=== PATIENT | female | born 1980 | race Caucasian/White ===

== ENCOUNTER 2024-04-28 12:07 | Outpatient (REF) | payer SELFPAY ==
[2024-04-28 13:10] LABS: MANUAL DIFF FLAG NO
[2024-04-28 13:34] LABS: Basophils Absolute Auto 0.1 X10*3/uL (0.0-0.2); Basophils Percent Auto 0.9 % (0-2); Eosinophils Absolute Auto 0.2 X10*3/uL (0.0-0.4); Eosinophils Percent Auto 3.2 % (0-4); Hematocrit 36.9 % (37.0-47.0); Hemoglobin 12.2 g/dl (12.0-16.0); Imm Gran Abs Auto 0.03 X10*3/uL (0.00-0.03); Imm Gran Pct Auto 0.4 % (0.0-0.4); Lymphocytes Absolute Auto 2.1 X10*3/uL (1.2-4.9); Lymphocytes Percent Auto 31.4 % (20-40); Mean Corpuscular HGB Conc 33.1 g/dl (31.0-35.0); Mean Corpuscular Hemoglobin 29.9 pg (27.0-33.0); Mean Corpuscular Volume 90.4 fL (80.0-98.0); Mean Platelet Volume 10.7 fL (9.4-12.3); Monocytes Absolute Auto 0.6 X10*3/uL (0.1-1.2); Monocytes Percent Auto 8.7 % (2-11); Neutrophils Absolute Auto 3.8 x10*3/uL (2.0-8.3); Neutrophils Percent Auto 55.4 % (45-73); Platelet Count 239 X10*3/uL (160-400); Red Blood Count 4.08 X10*6/uL (4.20-5.50); Red Cell Distribution Width 13.2 % (11.0-16.0); White Blood Count 6.8 X10*3/uL (4.8-10.8)
--- OUTSIDE RECORDS SUMMARY | 2024-04-28 13:48 | XMS_ITS | Encounter Summary ---
Author Organization [employer] Address [address] [place] [address] 7 [place] [address] Care Team Providers Care Apron Operator Name Role Phone Patience Wolf MD Primary Care Provider +1- [phone] Reason for Visit * Reason Onset Date Comments Appointment Request 02/19/2024 Encounter Details Date Type Department Care Team ([facility] st Contact Info) Description 02/19/2024 Telephone [facility] [address] [place] [address] Patience Wolf MD [address] [place], [place] [phone] Appointment Request Social History Tobacco Use Types Packs/Day Years Used Date Smoking Tobacco: Former Cigarettes Housing Stability Answer Date Recorded What is your housing situation today? I have housing today, but I am worried about losing housing in the future 12/11/[address] you li ve. Do you have problems with any of the following? None of the above 12/11/2022 Food Insecurity Answer Date Recorded Within the past 12 months, y ou worried that your food would run out before you got money to buy more: Never True 12/11/2022 Within the past 12 months,th e food you bought just didn't last and you didn't have enough money to get more: Never True Transportation Answer Date Recorded In the past 12 months, has l ack of transportation kept you from medical appts, meetings, work or from getting things needed for daily living? No 12/11/2022 Utilities Answer Date Recorded In the past 12 months, has t he electric, gas, oil or water company threatened to shut off services in your home? No 12/11/2022 Depression Answer Date Recorded Patient Health Questionnaire-2 Score 0 02/24/2022 Comments Unknown Sex and Gender Information Value Date Recorded Sex Assigned at Female 12/19/2021 10:19 AM EDT Legal Sex Female 10:19 AM EDT Gender Identity Female 12/19/2021 10:19 AM EDT Sexual Orientation Straight 12/19/2021 10 :19 AM EDT documented as of this encounter Miscellaneous Notes * Telephone Encounter - Nathan Abreu - 02/19/2024 11:35 AM EST Tc from pt calling stating she has an appt scheduled for 2 but it was cancelled and she was advised to call back in Feb when to see if the mar schedule has opened. Pt calls back slightly frustratedand feels it is unfair especially since the 3rd has been taken. Pt would like a call back to possibly reschedule PE. Please contact pt at [phone]. documented in this encounter Plan of Treatment Upcoming Encounters Date Type Department Care Team (Late st Contact Info) Description 06/12/2024 3:45 PM EDT Office Visit [facility] [address] [place] [phone] Lauren Jason MD [address] [place] [address] documented as of this encounter Visit Diagnoses Not on filedocumented in this encounter Care Teams Apron Operator Relationship Specialty Start Date End Date Patience Wolf MD [address] [place] [address] PCP - General Family Medicine 02/19/18 Dr. Santiago Psychiatry 03/05/24 documented as of this encounter
--- OUTSIDE RECORDS SUMMARY | 2024-04-28 13:49 | XMS_ITS | Encounter Summary ---
Author Organization [employer] Address [address] [place] [address] 7 [place] [address] Care Team Providers Care Bankruptcy Paralegal Name Role Phone Patience Wolf MD Primary Care Provider +1- [phone] Encounter Details Date Type Department Care Team (Latest Contact Info) Description 04/24/2024 Travel Social History Tobacco Use Types Packs/Day Years Used Date Smoking Tobacco: Former Cigarettes Housing Stability Answer Date Recorded What is your housing situation today? I have ja adams 04/16/[address] you li ve. Do you have problems with any of the following? None of the above 04/16/2024 Food Insecurity Answer Date Recorded Within the past 12 months, y ou worried that your food would run out before you got money to buy more: Never True 04/16/2024 Within the past 12 months,th e food you bought just didn't last and you didn't have enough money to get more: Never True Transportation Answer Date Recorded In the past 12 months, has l ack of transportation kept you from medical appts, meetings, work or from getting things needed for daily living? No 04/16/2024 Utilities Answer Date Recorded In the past 12 months, has t he electric, gas, oil or water company threatened to shut off services in your home? No 04/16/2024 Depression Answer Date Recorded Patient Health Questionnaire-2 Score 0 02/24/2022 Internet Access Answer Date Recorded Internet Access Q1 Yes 04/16/2024 Internet Access Q2 Not on file 04/16/2024 Comments Unknown Sex and Gender Information Value Date Recorded Sex Assigned at Female 12/19/2021 10:19 AM EDT Legal Sex Female 10:19 AM EDT Gender Identity Female 12/19/2021 10:19 AM EDT Sexual Orientation Straight 12/19/2021 10 :19 AM EDT documented as of this encounter Plan of Treatment Upcoming Encounters Date Type Department Care Team (Late st Contact Info) Description 06/12/2024 3:45 PM EDT Office Visit [facility] [address] [place] [address] Lauren Jason MD [address] [place] [address] documented as of this encounter Visit Diagnoses Not on filedocumented in this encounter Care Teams Bankruptcy Paralegal Relationship Specialty Start Date End Date Patience Wolf MD [address] [place] [id number] PCP - General Family Medicine 02/19/18 Dr. Santiago Psychiatry 03/05/24 documented as of this encounter
--- OUTSIDE RECORDS SUMMARY | 2024-04-28 13:49 | XMS_ITS | Encounter Summary ---
Author Organization [employer] Address [address] [facility] 7 [place] [address] Care Team Providers Care Heavy Equipment Operator Name Role Phone Patience Wolf MD Primary Care Provider +1- [phone] Encounter Details Date Type Department Care Team ([facility] st Contact Info) Description 02/09/2023 Telephone [facility] [address] [place], [place] [phone] Patience Wolf MD [address] [place], [place] [phone] Social History Tobacco Use Types Packs/Day Years Used Date Smoking Tobacco: Former Cigarettes Smokeless Tobacco: Never Housing Stability Answer Date Recorded What is [...] t he electric, gas, oil or water [employer] threatened to shut off services in your [...] Description 06/12/2024 3:45 PM EDT Office Visit [facility] [address] [place] [phone] Lauren Jason MD [address] [place] [address] documented as of this encounter Visit Diagnoses Not on filedocumented in this encounter Care Teams Heavy Equipment Operator Relationship Specialty Start Date End Date Patience Wolf MD [address] [place] [phone] PCP - General Family Medicine 02/19/18 Dr. Santiago Psychiatry 03/05/24 documented as of this encounter
--- OUTSIDE RECORDS SUMMARY | 2024-04-28 13:49 | XMS_ITS | Clinical Summary ---
Author Organization [employer] Address [address] [place] [address] 7 [place] [address] Care Team Providers Care Clinical Office Technician Name Role Phone Patience Wolf MD Primary Care Provider +1- [phone] Allergies Active Allergy Reactions Criticality Noted Date Comments Sulfa Antibiotics Unknown 04/13/2010 Medications albuterol (Ventolin HFA) 108 (90 Base) MCG/ACT inhaler Inhale 2 puffs every 4 (four) hours. 10/08/19 22 Active methylphenidate CD (Metadate CD) 20 MG daily capsuleIndication s:Attention deficit hyperactivity disorder (ADHD), unspecified ADHD type Take 20 mg by mouth in the morning. Do not crush or chew. Active Buprenorphine HCl-Naloxone HCl (Suboxone) 8-2 MG SL filmIndications:U ncomplicated opioid dependence (CMS/HCC) Place 2 Film under the tongue Once per day for 21 days. 42 Film 04/25/19 25 025 Active Buprenorphine HCl-Naloxone HCl (Suboxone) 8-2 MG SL filmIndications:U ncomplicated opioid dependence (CMS/HCC) Place 2 Film under the tongue Once per day. 56 Film 1 02/20/19 25 025 Discontinued(Re order (will not trigger notification to Pharmacy)) Buprenorphine HCl-Naloxone HCl (Suboxone) 8-2 MG SL filmIndications:U ncomplicated opioid dependence (CMS/HCC) Place 2 Film under the tongue Once per day. 56 Film 1 04/22/19 25 03/06/2 025 Discontinued(Re order (will not trigger notification to Pharmacy)) Active Problems Problem Noted Date Diagnosed Date Dietary counseling 04/28/2024 Exercise counseling 04/28/2024 Dyslipidemia 04/28/2024 Overview (04/28/2024): Lab Results Component Value Date TRIG 230 (H) 04/24/2022 -continue lifestyle modification Plantar fasciitis, bilateral 04/28/2024 Overview (04/28/2024): Diagnosed 04/2024 by history and exam -exercises reviewed -kinesotaping done with instructions how to do at home -seek medical attention if symptoms do not resolve Assessment & Plan (04/28/2024 12:21 PM EDT): Diagnosed 04/2024 by history and exam -exercises reviewed -kinesotaping done with instructions how to do at home -seek medical attention if symptoms do not resolve Abnormal mammogram 11/16/2023 Overview (11/16/2023): -mammogram at [facility] 01/05/2023 BIRADS 0 -right diagnostic Mammo 02/07/23 BIRADS 0 recommend US -right US FINDINGS: In the right breast at 10:00 7 cm from the nipple there is a 30.7 x 2.3 x 3.2 mm lymph node. Also, in the right breast at 10:00 11 cm from the nipple there is an 11 x 4 x 6 mm lymph node. These correlate with the previously demonstrated mammographic abnormalities. IMPRESSION: The mammographic abnormalities correspond with benign appearing lymph nodes. Recommendation: Annual screening. -next screening due 01/06/24 Cardiac risk counseling 06/13/2023 Overview (06/18/2023): Calculated 06/13/23: Low Risk The 10-year ASCVD risk score (Celeste LOU, et al., 2019) is: 1.9% Values used to calculate the score: Age: 43 years Sex: Female Is Non- : No Diabetic: No Tobacco smoker: No Systolic Blood Pressure: 163 mmHg Is BP treated: No HDL Cholesterol: 41 mg/dL Total Cholesterol: 201 mg/dL Lab Results Component Value Date LDLCHOL 123 (H) 04/24/2022 -Tobacco cessation: not applicable -Statin therapy:N/A -Importance of moderate physical activity and nutrition interventions discussed. Marijuana user 03/14/2023 Vapes nicotine containing substance 03/14/2023 Other specified health status 09/18/2022 Overview (04/28/2024): -next comprehensive annual evaluation due after 04/28/2025 -eye care facilitated by [facility] referral placed 03/14/23 -dental home [facility] care proxy filed 04/28/24 Assessment & Plan (04/28/2024 12:20 PM EDT): -next comprehensive annual evaluation due after 04/28/2025 -eye care facilitated by [facility] referral placed 03/14/23 -dental home is [facility] care proxy filed 04/28/24 Assessment & Plan (03/14/2023 3:47 PM EST): -next physical exam due after 03/14/24 -eye care facilitated by [facility] referral placed 03/14/23 -dental home is [facility] proxy paperwork given 03/14/23 Mild intermittent asthma 11/20/2016 Attention deficit hyperactivity disorder 012 Overview (02/24/2022): -Stable on Concerta prescribed by Dr. Santiago. Assessment & Plan (02/24/2022 10:33 AM EST): -Stable on Concerta prescribed by Dr. Santiago. Opioid dependence 02/02/2012 Overview (02/24/2022): -continue medication assisted therapy Assessment & Plan (02/24/2022 10:33 AM EST): -continue medication assisted therapy Resolved Problems Problem Noted Date Diagnosed Date Resolved Date Asthma 02/02/2012 02/24/2022 Tobacco dependence syndrome 02/02/2012 02/24/2022 Encounters Date Type Department Care Team Description 04/28/2024 10:45 AM EDT Office Visit [facility] [address] [place] [address] Patience Wolf MD Plantar fasciitis, bilateral (Primary Dx); Mild intermittent asthma without complication; Attention deficit hyperactivity disorder (ADHD), unspecified ADHD type; Abnormal mammogram; Dietary counseling; Exercise counseling; Encounter for immunization; Routine screening for STI (sexually transmitted infection); Screening mammogram for breast cancer; Screening examination for STI; Dyslipidemia; Menorrhagia with regular cycle; Vitamin D deficiency; Other specified health status 04/28/2024 Travel 04/24/2024 2:45 PM EST Office Visit [facility] [address] [place] [address] Lauren Jason MD Uncomplicated opioid dependence (CMS/HCC) (Primary Dx) 04/24/2024 Refill [facility] [address] [place] [address] Dashawn Sandoval RN Uncomplicated opioid dependence (CMS/HCC) 04/24/2024 Travel 04/17/2024 Refill [facility] [address] [place] [phone] Lauren Jason MD Uncomplicated opioid dependence (CMS/HCC) 04/16/2024 Patient Outreach [address] [address] Patience Wolf MD Pre-visit Planning (SDOH Screening negative and Tobacco screening negative) 02/28/2024 3:30 PM EST Telemedicine [facility] [address] [place] [address] Lauren Jason MD Uncomplicated opioid dependence (CMS/HCC) (Primary Dx) 02/28/2024 Travel 02/21/2024 Refill [facility] [address] [place] [address] Dashawn Sandoval RN Uncomplicated opioid dependence (CMS/HCC) 02/21/2024 Telephone [facility] [address] [place] [address] Dariela LeRICHEY, [place] March02/21/2024 Telephone [facility] [address] [place] [address] Dariela Le [place] March Recall 02/19/2024 Telephone [facility] [address] [place] [address] Patience Wolf MD Appointment Request from Last 3 Months Immunizations Name Administration Dates Next Due Hep A, Adult 02/15/2011,06/08/2010 Hep B, adult 04/28/2024,03/14/2023 Influenza injectable quadriv alent IIV4 with preservative 12/05/2017 Influenza, IIV3, injectable 12/09/2013,1 02/20/2010,03/19/2008,2006 Influenza, Split (incl. thang fied surface antigen) 01/08/2013,11/29/2011 Moderna Covid-19 Vaccine 12+ 01/20/2021,03/30/19,03/04/2020 Pneumococcal Conjugate PCV 20 04/28/2024 TD (adult), 2 Lf tetanus tox oid, preservative free, adsorbed 11/20/2003 Tdap 04/28/2024,05/13/2014 Family History Medical History Relation Name Comments Hodgkin's lymphoma Maternal Grandmother passed from covid Mother Patient wi tnessed passing via FaceTime. Diabetes Paternal Grandmother Relation Name Status Comments Daughter Alive Maternal Grandmother Mother Paternal Grandmother Social History Tobacco Use Types Packs/Day Years Used Date Smoking Tobacco: Former Cigarettes Tobacco Cessation:Counseling Given: No Depression Answer Date Recorded Patient Health Questionnaire-9 Score 5 04/28/2024 Patient Health Questionnaire-9 Score 5 04/28/2024 Last PHQ-9: Questionnaire Data Not on file 0 04/28/2024 Housing Stability Answer Date Recorded What is [...] Date Recorded Patient Health Questionnaire-2 Score 0 04/28/2024 Internet Access Answer Date Recorded Internet Access Q1 Yes 04/16/2024 Internet Access Q2 Not on file 04/16/2024 Comments Unknown Sex and Gender Information Value Date Recorded Sex Assigned at Female 12/19/2021 10:19 AM EDT Legal Sex Female 10:19 AM EDT Gender Identity Female 12/19/2021 10:19 AM EDT Sexual Orientation Straight 12/19/2021 10 :19 AM EDT Last Filed Vital Signs Vital Sign Reading Time Taken Comments Blood Pressure 115/75 04/28/2024 11:10 AM EDT Pulse 85 04/28/2024 11:10 AM EDT Temperature 35.6 ??C (96 ??F) 04/28/2024 11:10 AM EDT Respiratory Rate 20 04/28/2024 11:10 AM EDT Oxygen Saturation 95% 04/28/2024 11:10 AM EDT Inhaled Oxygen Concentration - - Weight 83.9 kg (185 lb) 04/28/2024 11:10 AM EDT Height 172.1 cm (5' 7.75 ) 04/28/2024 11:10 AM E DT Body Mass Index 28.34 04/28/2024 11:10 AM EDT Plan of Treatment Upcoming Encounters Date Type Department Care Team (Late st Contact Info) Description 06/12/2024 3:45 PM EDT Office Visit [facility] [address] [place] [address] Lauren Jason MD [address] [place] [address] Health Maintenance Due Date Last Done Comments Mammogram 01/06/2024 01/05/2023 Hepatitis B Vaccines (3 of 3 - 19+ 3-dose series) 06/23/2024 04/28/2024, 03/14/2023 SDOH Screening 04/16/2025 04/16/2024 Alcohol/Substance Use Screening 04/28/2025 04/28/2024 Depression Screening 04/28/2025 04/28/2024, 04/29/19 Family Planning (PISQ) 04/28/2025 04/28/2024 Tobacco Screening 04/28/2025 04/28/2024 Cervical Cancer Screening 11/15/2027 HPV/Cotest 11/15/2027 11/14/2022, 06/19, 07/05/2016 Pap Smear 11/15/2027 11/14/2022, 07/05/2016 Zoster Vaccines (1 of 2) 2030 DTaP/Tdap/Td Vaccines (3 - Td or Tdap) 04/28/2034 04/28/2024, 05/13/2014, 11/20/2003 RSV Patients and Patients Aged 60 years or older (1 - 1-dose 75+ series) 05/24/2055 Hepatitis A Vaccines Aged Out 02/15/2011, 06/09/19 11 No longer eligible based on patient's age to complete this topic HIV Screening Completed 04/24/2022 Hepatitis C Screening Completed 04/24/2022 COVID-19 Vaccine Completed 10/23/2023, 03/2020, 03/30/2020, Additional history exists Influenza Vaccine Completed 11/15/2023, , 12/09/2013, Additional history exists Pneumococcal Vaccine: Pediatrics (0 to 5 Years) and At-Risk Patients (6 to 49) Years) Completed 04/28/2024 HIB Vaccines Aged Out No longer eligi ble based on patient's age to complete this topic HPV Vaccines Aged Out No longer eligi ble based on patient's age to complete this topic IPV Vaccines Aged Out No longer eligi ble based on patient's age to complete this topic Meningococcal Vaccine Aged Out No min krysta eligible based on patient's age to complete this topic RSV under 20 months Aged Out No longe r eligible based on patient's age to complete this topic Rotavirus Vaccines Aged Out No longer eligible based on patient's age to complete this topic Procedures Procedure Name Priority Date/Time Associated Diagnosis Comments CBC WITH AUTO DIFFERENTIAL Routine 04/28/2024 12:10 PM EDT Menorrhagia with regular cycle POCT NICHOLAS-14 URINE DRUG SCREEN Routine 04/24/2024 3:45 PM EST Uncomplicated opioid dependence (CMS/HCC) HM MAMMOGRAPHY Routine 01/05/2023 PAP/HPV Routine 11/14/2022 HEPATITIS C VIRAL RNA, QUANTITATIVE, REAL-TIME PCR Routine 04/24/2022 11:27 AM EST Routine screening for STI (sexually transmitted infection) HIV 1/2 ANTIGEN/ANTIBODY, FOURTH GENERATION W/RFL Routine 04/24/2022 11:27 AM EST Routine screening for STI (sexually transmitted infection) from Last 3 Months or Most Recently Relevant to Health Maintenance Results * (ABNORMAL) CBC auto differential (04/28/2024 12:10 PM EDT) White Blood Count 6.8 4.8 - 10.8 X10*3/uL [facility] Red Blood Count 4.08(L) 4.20 - 5.50 X10*6/uL [facility] Hemoglobin 12.2 12.0 - 16.0 g/dl [facility] Hematocrit 36.9(L) 37.0 - 47.0 % [facility] Mean Corpuscular Volume 90.4 80.0 - 98.0 fL [facility] Mean Corpuscular Hemoglobin 29.9 27.0 - 33.0 pg [facility] Mean Corpuscular HGB Conc 33.1 31.0 - 35.0 g/dl [facility] Red Cell Distribution Width 13.2 11.0 - 16.0 % [facility] Platelet Count 239 160 - 400 X10*3/uL [facility] Mean Platelet Volume 10.7 9.4 - 12.3 fL [facility] Neutrophils Percent Auto 55.4 45 - 73 % [facility] Imm Gran Pct Auto 0.4 0.0 - 0.4 % [facility] Lymphocytes Percent Auto 31.4 20 - 40 % [facility] Monocytes Percent Auto 8.7 2 - 11 % [facility] Eosinophils Percent Auto 3.2 0 - 4 % [facility] Basophils Percent Auto 0.9 0 - 2 % [facility] NRBC Pct Auto 0.0 0.0 - 0.2 /100WBC [facility] Neutrophils Absolute Auto 3.8 2.0 - 8.3 x10*3/uL [facility] Imm Gran Abs Auto 0.03 0.00 - 0.03 X10*3/uL [facility] Lymphocytes Absolute Auto 2.1 1.2 - 4.9 X10*3/uL [facility] Monocytes Absolute Auto 0.6 0.1 - 1.2 X10*3/uL [facility] Eosinophils Absolute Auto 0.2 0.0 - 0.4 X10*3/uL [facility] Basophils Absolute Auto 0.1 0.0 - 0.2 X10*3/uL [facility] NRBC Abs Auto 0.000 0.0 - 0.012 X10*3/uL [facility] Blood Venous blood specimen / Unknown 04/28/2024 12:10 PM EDT 04/28/2024 1:05 PM EDT us Patience Wolf MD LAB BLOOD ORDERABLES Final Result [facility] [address] [place] [phone] * POCT NICHOLAS-14 Urine Drug Screen (04/24/2024 3:45 PM EST) THC Positive Cocaine Screen, Urine Negative Opiate Screen, Urine Negative Methamphetamine Screen Urine Negative Amphetamine Screen, Urine Negative Benzodiazepines Screen, Urine Negative Barbiturate Screen, Urine Negative Methadone Screen, Urine Negative Buprenophine Screen, Urine Positive TCA, Urine Negative MDMA Urine Negative ng/mL Oxycodone Screen, Urine Negative Phencyclidine (PCP), Urine Negative Propoxyphene, Urine Negative Fentanyl, Urine Negative Urine Urine specimen obtained by clean catch procedure / Unknown 04/24/2024 3:45 PM EST Lauren Jason MD POINT OF CARE TEST ENTER/VIVIANA T ORDERABLES Final Result * (ABNORMAL) Mammography (01/05/2023) Mammogram BIRADS 0(A) Normal, Abnormal, BIRADS 1 , BIRADS 2 Comment:f/u right mammo BIRA DS 0, US BIRADS 2, annual screening reocmmended, bmc Anatomical Region Laterality Modality Other Historical Provider HEALTH MAINTENANCE Final Result * Pap Smear (11/14/2022) Pathologist [facility] [place] Pap Negative for intraephithelial lesion or malignancy Negative for intraephithelial lesion or malignancy, Other HPV Not Detected Undetected, Indeterminate, Quantitative, Not Detected [facility] Provider [facility] Final Result * Hepatitis C Viral RNA, Quantitative, Real-Time PC (04/24/2022 11:27 AM EST) Pathologist [facility] [place] HCV RNA, QN Real Time PCR <15 NOT DETECTED NOT DETECTED IU/mL [employer] [facility] RNA QN Real Time PCR <1.18 NOT DETECTED NOT DETECTED Log IU/mL [employer] [facility] Comment: This test was performed using Real-Time Polymerase Chain Reaction. Reportable Range: 15 IU/mL to 100,000,000 IU/mL (1.18 Log IU/mL to 8.00 Log IU/mL). ?? The analytical performance characteristics of this assay have been determined by [employer]. The modifications have not been cleared or approved by the FDA. This assay has been validated pursuant to the CLIA regulations and is used for clinical purposes. ?? For more information on this test, go to: http://education.[employer]/faq/LGY30w4 (This link is being provided for informational/ educational purposes only.) 04/24/2022 11:2 7 AM EST 04/24/2022 11:28 AM EST Narrative [facility] - 04/26/2022 3:59 PM EST FASTING:YES FASTING: YES Patience Wolf MD LAB BLOOD ORDERABLES Final Result Performing Organization Address City/[facility]/ZIP Co de Phone Number [facility] [address], [place] [address] [employer] [place] [employer] [facility] [address] [facility], (Nl2) [place] [address] * HIV-1/2 Antigen and Antibodies, Fourth Generation, with Reflexes (04/24/2022 11:27 AM EST) HIV Antigen/Antibody, 4th Generation NON-REAC TIVE NON-REAC TIVE [employer] [place] [employer] Comment: HIV-1 antigen and HIV-1/HIV-2 antibodies were not detected. There is no laboratory evidence of HIV infection. PLEASE NOTE: This information has been disclosed to you from records whose confidentiality may be protected by state law. ??If your state requires such protection, then the state law prohibits you from making any further disclosure of the information without the specific written consent of the person to whom it pertains, or as otherwise permitted by law. A general authorization for the release of medical or other information is NOT sufficient for this purpose. ?? For additional information please refer to http://education.[employer]/faq/QXF948 (This link is being provided for informational/ educational purposes only.) The performance of this assay has not been clinically validated in patients less than 2 years old. Blood Venous blood specimen / Unknown 04/24/2022 11:27 AM EST 04/24/2022 11:28 AM EST Narrative [facility] - 04/26/2022 3:59 PM EST FASTING:YES FASTING: YES Patience Wolf MD LAB BLOOD ORDERABLES Final Result Performing Organization Address City/[facility]/ZIP Co de Phone Number [facility] [address], [place] [address] [employer] [place] [employer] [facility] [address] [facility], (N[address]) [place] [address] from Last 3 Months or Most Recently Relevant to Health Maintenance Insurance [facility] Care Teams Clinical Office Technician Relationship Specialty Start Date End Date Luciano, MD Patience [address] [place] [address] PCP - General Family Medicine 02/19/18 Dr. Santiago Psychiatry 03/05/24
--- OUTSIDE RECORDS SUMMARY | 2024-04-28 13:49 | XMS_ITS | Encounter Summary ---
Author Organization [email or web address] Address [address] [place] [address] [address] [place] [address] Care Team Providers Care Actuarial Trainee Name Role Phone Patience Wolf MD Primary Care Provider +1- [phone] Encounter Details Date Type Department Care Team ([facility] Contact Info) Description 03/23/2022 Orders Only [facility] [address] [place], [place] [phone] Richard Trammell MD [address] [place], [place] [phone] Social History Tobacco Use Types Packs/Day Years Used Date Smoking Tobacco: Former Cigarettes Smokeless Tobacco: Never Depression Answer Date Recorded Patient Health Questionnaire-2 Score 0 02/24/2022 Comments Unknown Sex and Gender Information Value Date Recorded Sex Assigned at Female 12/19/2021 10:19 AM EDT Legal Sex Female 10:19 AM EDT Gender Identity Female 12/19/2021 10:19 AM EDT Sexual Orientation Straight 12/19/2021 10 :19 AM EDT COVID-19 Exposure Response Date Recorded In the last 10 days, have yo u been in contact with someone who was confirmed or suspected to have Coronavirus/COVID-19? No / Unsure 03/22/2022 6:12 PM EST documented as of this encounter Plan of Treatment Upcoming Encounters Date Type Department Care Team ([facility] Contact Info) Description 06/12/2024 3:45 PM EDT Office Visit [facility] [address] [place] [address] [phone] Lauren Jason MD [address] [place] [address] documented as of this encounter Visit Diagnoses Not on filedocumented in this encounter Care Teams Actuarial Trainee Relationship Specialty Start Date End Date Patience Wolf MD [address] [place] [address] PCP - General Family Medicine 02/19/18 Dr. Santiago Psychiatry 03/05/24 documented as of this encounter
--- OUTSIDE RECORDS SUMMARY | 2024-04-28 13:49 | XMS_ITS | Encounter Summary ---
Author Organization [employer] Address [address] [place] [address] Care Team Providers Care Application Release Manager Name Role Phone Patience Wolf MD Primary Care Provider +1- [phone] Encounter Details Date Type Department Care Team (Late st Contact Info) Description 11/15/2022 Abstract [facility] [address] [place] [address] [phone] Patience Wolf MD [address] [place] [address] [phone] Social History Tobacco Use Types Packs/Day Years [...] EDT Office Visit [facility] [address] [place] [address] [phone] Lauren Jason MD [address] [place] [address] [phone] documented as of this encounter Visit Diagnoses Not on filedocumented in this encounter Care Teams Application Release Manager Relationship Specialty Start Date End Date Patience Wolf MD [address] [place] [address] PCP - General Family Medicine 02/19/18 Dr. Santiago Psychiatry 03/05/24 documented as of this encounter
--- OUTSIDE RECORDS SUMMARY | 2024-04-28 13:49 | XMS_ITS | Encounter Summary ---
Author Organization [employer] Address [address] [place] [address] Care Team Providers Care Livestock Ranch Hand Name Role Phone Patience Wolf MD Primary Care Provider +1- [phone] Reason for Referral * Medications - Closed Specialty Diagnoses / Procedures Referred By Contac t Referred To Contact Diagnoses Uncomplicated opioid dependence (CMS/HCC) Lauren Jason MD [address] [place] [address] Phone: tel: fax: Referral ID Status Reason Start Date Expiration Date Visits Re quested Visits Authorized [id number] Closed 1 1 Reason for Visit * Reason Onset Date Comments Med Refill 04/24/2024 Encounter Details Date Type Department Care Team (Late st Contact Info) Description 04/24/2024 Refill [facility] [address] [place] [address] Dashawn Sandoval, MICHAEL [address] [place] [address] Uncomplicated opioid dependence (CMS/HCC) Social History Tobacco Use Types Packs/Day Years [...] Description 06/12/2024 3:45 PM EDT Office Visit [facility] [address] [place] [phone] Lauren Jason MD [address] [place] [address] documented as of this encounter Visit Diagnoses Diagnosis Uncomplicated opioid dependence (CMS/HCC) documented in this encounter Care Teams Livestock Ranch Hand Relationship Specialty Start Date End Date Patience Wolf MD [address] [place] [phone] PCP - General Family Medicine 02/19/18 Dr. Santiago Psychiatry 03/05/24 documented as of this encounter
--- OUTSIDE RECORDS SUMMARY | 2024-04-28 13:49 | XMS_ITS | Encounter Summary ---
Author Organization [employer] Address [address] [place] [address] 7 [place] [address] Care Team Providers Care Home Agent Name Role Phone Patience Wolf MD Primary Care Provider +1- [phone] Reason for Visit * Reason Comments Pre-visit Planning SDOH Screening negat honey and Tobacco screening negative Encounter Details Date Type Department Care Team ([facility] st Contact Info) Description 04/16/2024 Patient Outreach [facility] [address] [place], [place] [phone] Patience Wolf MD 230 [place], [place] [phone] Pre-visit Planning (SDOH Screening negative and Tobacco screening negative) Social History Tobacco Use Types Packs/Day Years [...] AM EDT documented as of this encounter Progress Notes * Fanta Augustine - 04/16/2024 2:35 PM EST ALEK Desai placed successful outbound call to patient for pre-visit planning. Patient name and confirmed. Patient confirms appt date and time, and has transportation arrangements. Biggest concern for appointment at this time is has few concerns but is unable to look at the list on her phone while driving. Patient advised to bring to appointment a photo id and insurance card. Appropriate screenings completed in anticipation of appointment. documented in this encounter Plan of Treatment Upcoming Encounters Date Type Department Care Team (Late st Contact Info) Description 06/12/2024 3:45 PM EDT Office Visit [facility] [address] [place] [address] Lauren Jason MD 230 [place] [address] documented as of this encounter Visit Diagnoses Not on filedocumented in this encounter Care Teams Home Agent Relationship Specialty Start Date End Date Patience Wolf MD [address] [place] [phone] PCP - General Family Medicine 02/19/18 Dr. Santiago Psychiatry 03/05/24 documented as of this encounter
--- OUTSIDE RECORDS SUMMARY | 2024-04-28 13:49 | XMS_ITS | Encounter Summary ---
Author Organization [employer] Address [address] [facility] 7 [place] [address] Care Team Providers Care Limehouse Worker Name Role Phone Patience Wolf MD Primary Care Provider +1- [phone] Encounter Details Date Type Department Care Team ([facility] st Contact Info) Description 02/09/2023 Telephone [facility] [address] [place], [place] [phone] Patience Wolf MD 230 [place], [place] [phone] Social History Tobacco Use Types Packs/Day Years [...] t he electric, gas, oil or water [employer] threatened to shut off services in your [...] Description 06/12/2024 3:45 PM EDT Office Visit [facility] [address] [place] [phone] Lauren Jason MD [address] [place] [address] documented as of this encounter Visit Diagnoses Not on filedocumented in this encounter Care Teams Limehouse Worker Relationship Specialty Start Date End Date Patience Wolf MD [address] [place] [address] PCP - General Family Medicine 02/19/18 Dr. Santiago Psychiatry 03/05/24 documented as of this encounter
--- OUTSIDE RECORDS SUMMARY | 2024-04-28 13:49 | XMS_ITS | Encounter Summary ---
Author Organization [employer] Address [address] [place] [address] Care Team Providers Care Architectural Manager Name Role Phone Patience Wolf MD Primary Care Provider +1- [phone] Reason for Referral * Imaging (Routine) - Authorized Specialty Diagnoses / Procedures Referred By Contac t Referred To Contact Radiology Diagnoses Screening mammogram for breast cancer Procedures BI Mammogram Screening Tomosynthesis Bilateral Patience Wolf MD [address] [place] [address] Phone: tel: fax: [facility] [place] Referral ID Status Reason Start Date Expiration Date V isits Requested Visits Authorized [id number] Authorized 04/28/2024 04/28/2025 1 1 Reason for Visit * Reason Comments physcial Encounter Details Date Type Department Care Team (Latest Contact Info) Description 04/28/2024 10:45 AM EDT Office Visit [facility] [address] [place] [address] [phone] Patience Wolf MD [address] [place], [place] [phone] Plantar fasciitis, bilateral (Primary Dx); Mild intermittent asthma without complication; Attention deficit hyperactivity disorder (ADHD), unspecified ADHD type; Abnormal mammogram; Dietary counseling; Exercise counseling; Encounter for immunization; Routine screening for STI (sexually transmitted infection); Screening mammogram for breast cancer; Screening examination for STI; Dyslipidemia; Menorrhagia with regular cycle; Vitamin D deficiency; Other specified health status Social History Tobacco Use Types Packs/Day Years Used Date Smoking Tobacco: Former Cigarettes Depression Answer Date Recorded Patient Health Questionnaire-9 [...] AM EDT documented as of this encounter Last Filed Vital Signs Vital Sign Reading [...] Mass Index 28.34 04/28/2024 11:10 AM EDT documented in this encounter Progress Notes * Patience Wolf MD - 04/28/2024 10:45 AM EDT Subjective Amara is a 43 y.o. female with past medical history of opioid dependence, ADHD and asthma who presents to the office today for chronic medical conditions and comprehensive annual evaluation. Uses rescue inhaler occasionally, otherwise asthma well controlled. Having trouble getting her Concerta from psychiatry. Having difficulty with functioning and work due to uncontrolled symptoms of ADHD. Amara reports bilateral foot pain. Reports when wakes up in the morning when she goes to stand she feels electric shocks coming up from her feet. Reports right sided sciatica. Social History Tobacco: denied Drugs: none Alcohol: No Sexuality: Denies current sexual activity Suicide/Depression: The patient denies any present symptoms of depression or anxiety. Review of Systems Constitutional: Negative for fatigue, fever and unexpected weight change. Respiratory: Negative for cough. Cardiovascular: Negative for chest pain. Gastrointestinal: Negative for abdominal pain. Genitourinary: Negative for difficulty urinating. Current Outpatient Medications: albuterol (Ventolin HFA) 108 (90 Base) MCG/ACT inhaler, Inhale 2 puffs every 4 (four) hours., Disp:, Rfl: Buprenorphine HCl-Naloxone HCl (Suboxone) 8-2 MG SL film, Place 2 Film under the tongue Once per day for 21 days., Disp: 42 Film, Rfl: 0 methylphenidate CD (Metadate CD) 20 MG daily capsule, Take 20 mg by mouth in the morning. Do not crush or chew., Disp: , Rfl: Allergies Allergen Reactions Sulfa Antibiotics Unknown Past Medical History: Diagnosis Date ADHD Attention deficit hyperactivity disorder 02/02/2012 -Stable on Concerta prescribed by Dr. Santiago. Marijuana user 03/14/2023 Mild intermittent asthma 11/20/2016 Opioid dependence ([facility]) 02/02/2012 -continue medication assisted therapy Vapes nicotine containing substance 03/14/2023 Past Surgical History: Procedure Laterality Date PELVIC FRACTURE SURGERY Family History Problem Relation Name Age of Onset Other (passed from [facility]) Mother Patient witnessed passing via [employer]. Hodgkin's lymphoma Maternal Grandmother Diabetes Paternal Grandmother Objective Visit Vitals BP 115/75 (BP Location: Left arm, Patient Position: Sitting, BP Cuff Size: Adult) Pulse 85 Temp 96 ??F (35.6 ??C) (Temporal) Resp 20 Ht 5' 7.75 (1.721 m) Wt 185 lb (83.9 kg) SpO2 95% BMI 28.34 kg/m?? Smoking Status Former BSA 2 m?? Physical Exam Constitutional: Appearance: Normal appearance. HENT: Head: Normocephalic. Right Ear: Tympanic membrane normal. Left Ear: Tympanic membrane normal. Mouth/Throat: Pharynx: Oropharynx is clear. Eyes: Pupils: Pupils are equal, round, and reactive to light. Cardiovascular: Rate and Rhythm: Normal rate and regular rhythm. Heart sounds: Normal heart sounds. Pulmonary: Effort: Pulmonary effort is normal. Breath sounds: Normal breath sounds. Abdominal: General: Abdomen is flat. Palpations: There is no mass. Tenderness: There is no abdominal tenderness. Musculoskeletal: General: Normal range of motion. Cervical back: Normal range of motion and neck supple. Lymphadenopathy: Cervical: No cervical adenopathy. Skin: General: Skin is warm and dry. Neurological: General: No focal deficit present. Mental Status: She is alert. Psychiatric: Behavior: Behavior normal. 43 y.o. female annual evaluation. Problem List Items Addressed This Visit Plantar fasciitis, bilateral - Primary Diagnosed 04/2024 by history and exam -exercises reviewed -kinesotaping done with instructions how to do at home -seek medical attention if symptoms do not resolve Mild intermittent asthma Attention deficit hyperactivity disorder Relevant Medications methylphenidate CD (Metadate CD) 20 MG daily capsule Abnormal mammogram Dietary counseling Exercise counseling Dyslipidemia Relevant Orders Hepatic Function Panel Lipid Panel, Standard Other specified health status -next comprehensive annual evaluation due after 04/28/2025 -eye care facilitated by [facility] referral placed 03/14/23 -dental home is [facility] -health care proxy filed 04/28/24 Other Visit Diagnoses Encounter for immunization Relevant Orders HEPATITIS B VACCINE ADULT 20 yrs + (Completed) PCV-20 VACCINE 6 wks + (Completed) TDAP VACCINE 7 yrs + (Completed) Routine screening for STI (sexually transmitted infection) Screening mammogram for breast cancer Relevant Orders BI Mammogram Screening Tomosynthesis Bilateral Screening examination for STI Relevant Orders Hepatitis C Antibody with Reflex to HCV, RNA, Quantitative, Real-Time PCR HIV-1/2 Antigen and Antibodies, Fourth Generation, with Reflexes Chlamydia/N. Gonorrhoeae RNA, TMA, Urine Menorrhagia with regular cycle Relevant Orders Basic Metabolic Panel TSH with Reflex to Free T4 CBC auto differential Vitamin D deficiency Relevant Orders Vitamin D, 25-Hydroxy, Total, Immunoassay Annual Evaluation -Normal growth and development. -Anticipatory guidance discussed. -Preventative care / harm reduction discussed. Follow up in about 1 year (around 04/28/2025) for physical. I, Kae Márquez, am serving as a scribe to document services personally performed by Dr. Dorman, based on the patient's response to questions by provider and providers statements to me. documented in this encounter Miscellaneous Notes * Assessment & Plan Note - Patience Wolf MD - 04/28/2024 12:21 PM EDT Associated Problem(s): Plantar fasciitis, bilateral Diagnosed 04/2024 by history and exam -exercises reviewed -kinesotaping done with instructions how to do at home -seek medical attention if symptoms do not resolve * Assessment & Plan Note - Patience Wolf MD - 04/28/2024 11:28 AM EDT Associated Problem(s): Other specified health status -next comprehensive annual evaluation due after 04/28/2025 -eye care facilitated by [facility] referral placed 03/14/23 -dental home is [facility] -health care proxy filed 04/28/24 documented in this encounter Plan of Treatment Upcoming Encounters Date Type Department Care Team (Late st Contact Info) Description 06/12/2024 3:45 PM EDT Office Visit [facility] [address] [facility] [place] [address] Lauren Jason MD [address] [facility] [place] [address] Scheduled Orders Name Type Priority Associated Diagnoses Orde r Schedule BI Mammogram Screening Tomosynthesis Bilateral Imaging Routine Screening mammogram for breast cancer Expected: 04/28/2024, Expires: 06/28/2025 Hepatic Function Panel Lab Routine Dyslipidemia Expected: 04/28/2024, Expires: 04/28/2025 Lipid Panel, Standard Lab Routine Dyslipidemia Expected: 04/28/2024, Expires: 04/28/2025 Basic Metabolic Panel Lab Routine Menorrhagia with regular cycle Expected: 04/28/2024, Expires: 04/28/2025 TSH with Reflex to Free T4 Lab Routine Menorrhagia with regular cycle Expected: 04/28/2024 (Approximate), Expires: 04/28/2025 Vitamin D, 25-Hydroxy, Total, Immunoassay Lab Routine Vitamin D deficiency Expected: 04/28/2024 (Approximate), Expires: 04/28/2025 Hepatitis C Antibody with Reflex to HCV, RNA, Quantitative, Real-Time PCR Lab Routine Screening examination for STI Expected: 04/28/2024 (Approximate), Expires: 04/28/2025 HIV-1/2 Antigen and Antibodies, Fourth Generation, with Reflexes Lab Routine Screening examination for STI Expected: 04/28/2024 (Approximate), Expires: 04/28/2025 Chlamydia/N. Gonorrhoeae RNA, TMA, Urine Microbiology Routine Screening examination for STI Expected: 04/28/2024 (Approximate), Expires: 04/28/2025 documented as of this encounter Procedures Procedure Name Priority Date/Time Associated Diagnosis Comments CBC WITH AUTO DIFFERENTIAL Routine 04/28/2024 12:10 PM EDT Menorrhagia with regular cycle documented in this encounter Results * (ABNORMAL) CBC auto differential (04/28/2024 12:10 PM EDT) White Blood Count 6.8 4.8 - 10.8 X10*3/uL [facility] Red Blood Count 4.08(L) 4.20 - 5.50 X10*6/uL [facility] Hemoglobin 12.2 12.0 - 16.0 g/dl [facility] Hematocrit 36.9(L) 37.0 - 47.0 % [facility] Mean Corpuscular Volume 90.4 80.0 - 98.0 fL [facility] Mean Corpuscular Hemoglobin 29.9 27.0 - 33.0 pg [facility] Mean Corpuscular HGB Conc 33.1 31.0 - 35.0 g/dl [facility] Red Cell Distribution Width 13.2 11.0 - 16.0 % [facility] Platelet Count 239 160 - 400 X10*3/uL [facility] Mean Platelet Volume 10.7 9.4 - 12.3 fL [facility] Neutrophils Percent Auto 55.4 45 - 73 % [facility] Imm Gran Pct Auto 0.4 0.0 - 0.4 % [facility] Lymphocytes Percent Auto 31.4 20 - 40 % [facility] Monocytes Percent Auto 8.7 2 - 11 % [facility] Eosinophils Percent Auto 3.2 0 - 4 % [facility] Basophils Percent Auto 0.9 0 - 2 % [facility] NRBC Pct Auto 0.0 0.0 - 0.2 /100WBC [facility] Neutrophils Absolute Auto 3.8 2.0 - 8.3 x10*3/uL [facility] Imm Gran Abs Auto 0.03 0.00 - 0.03 X10*3/uL [facility] Lymphocytes Absolute Auto 2.1 1.2 - 4.9 X10*3/uL [facility] Monocytes Absolute Auto 0.6 0.1 - 1.2 X10*3/uL [facility] Eosinophils Absolute Auto 0.2 0.0 - 0.4 X10*3/uL [facility] Basophils Absolute Auto 0.1 0.0 - 0.2 X10*3/uL [facility] NRBC Abs Auto 0.000 0.0 - 0.012 X10*3/uL [facility] Blood Venous blood specimen / Unknown 04/28/2024 12:10 PM EDT 04/28/2024 1:05 PM EDT Patience Wolf MD LAB BLOOD ORDERABLES Final Result Performing Organization Address City/State/[facility] Co de Phone Number [facility] [address] [place] [address] [phone] documented in this encounter Visit Diagnoses Diagnosis Plantar fasciitis, bilateral- Primary Mild intermittent asthma without complication Attention deficit hyperactivity disorder (ADHD), unspecified ADHD type Abnormal mammogram Abnormal mammogram, unspecified Dietary counseling Dietary surveillance and counseling Exercise counseling Encounter for immunization Routine screening for STI (sexually transmitted infection) Screening examination for venereal disease Screening mammogram for breast cancer Screening examination for STI Dyslipidemia Other and unspecified hyperlipidemia Menorrhagia with regular cycle Vitamin D deficiency Other specified health status documented in this encounter Additional Health Concerns Assessment Noted Time PHQ-9 Depression Total Score: 5 04/29/19 25 12:27 PM EDT documented as of this encounter Care Teams Architectural Manager Relationship Specialty Start Date End Date Patience Wolf MD [address] [place] [phone] PCP - General Family Medicine 02/19/18 Dr. Santiago Psychiatry 03/05/24 documented as of this encounter
--- OUTSIDE RECORDS SUMMARY | 2024-04-28 13:49 | XMS_ITS | Encounter Summary ---
Author Organization [employer] Address [address] [place] [address] 7 [place] [address] Care Team Providers Care Vocational Training Director Name Role Phone Patience Wolf MD Primary Care Provider +1- [phone] Encounter Details Date Type Department Care Team (Latest Contact Info) Description 04/28/2024 Travel Social History Tobacco Use Types Packs/Day [...] [facility] [address] [place] [address] Lauren Jason MD [address] [place] [address] documented as of this encounter Visit Diagnoses Not on filedocumented in this encounter Additional Health Concerns Assessment Noted Time PHQ-9 Depression Total Score: 5 04/29/19 25 12:27 PM EDT documented as of this encounter Care Teams Vocational Training Director Relationship Specialty Start Date End Date Patience Wolf MD [address] [place] [address] PCP - General Family Medicine 02/19/18 Dr. Santiago Psychiatry 03/05/24 documented as of this encounter
--- OUTSIDE RECORDS SUMMARY | 2024-04-28 13:49 | XMS_ITS | Encounter Summary ---
Author Organization [employer] Address [address] [place] [address] [address] [place] [address] Care Team Providers Care Materials Planner Name Role Phone Patience Wolf MD Primary Care Provider +1- [phone] Reason for Visit * Reason Onset Date Comments Med Refill 04/17/2024 Encounter Details Date Type Department Care Team (Late st Contact Info) Description 04/17/2024 Refill [facility] [address] [place], [place] [phone] Lauren Jason MD [address] [place], [place] [phone] Uncomplicated opioid dependence (CMS/HCC) Social History Tobacco [...] Description 06/12/2024 3:45 PM EDT Office Visit [facility] [address] [place] [address] Lauren Jsaon MD [address] [place] [address] documented as of this encounter Visit Diagnoses Diagnosis Uncomplicated opioid dependence (CMS/HCC) documented in this encounter Care Teams Materials Planner Relationship Specialty Start Date End Date Patience Wolf MD [address] [place] [address] PCP - General Family Medicine 02/19/18 Dr. Santiago Psychiatry 03/05/24 documented as of this encounter
--- OUTSIDE RECORDS SUMMARY | 2024-04-28 13:49 | XMS_ITS | Encounter Summary ---
Author Organization [employer] Address [address] [place] [address] [address] [place] [address] Care Team Providers Care Radiation Technician Name Role Phone Patience Wolf MD Primary Care Provider +1- [phone] Reason for Visit * Reason Comments OBAT Encounter Details Date Type Department Care Team (Latest Contact Info) Description 04/24/2024 2:45 PM EST Office Visit [facility] [address] [place], [place] [phone] Lauren Jason MD [address] [place], [place] [phone] Uncomplicated opioid dependence (CMS/HCC) (Primary Dx) Social History Tobacco Use Types Packs/Day Years [...] past 12 months, has t he electric, [employer], oil or water [employer] threatened to shut off services in your [...] as of this encounter Progress Notes * Lauren Jason MD - 04/24/2024 2:45 PM EST Patient here for RV for Opioid Dependence. Patient has been in the program for 17 yrs/2 mos, since 03/07/07. Patient is enrolled in [facility], sees Dr. Santiago. Current dose of Suboxone is 16/4 mg daily with appointments on an 8 week schedule. LFTs done 09/11/18, ordered 03/14/23. MAPAT reviewed by provider. Saw PCP 03/14/23. Vaccinated against COVID, got booster. LAST VISIT TEL 02/28/24 Amara is being seen for OBAT services. She is maintaining abstinence with no cravings or med side effects. Her grandmother was in the hospital over the holidays and she is requiring a lot of care. 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 She was relieved to see that today's visit was a phone visit. No concerns today. She is still having trouble accessing her ADHD medication but her psych is aware. TODAY-04/24/24 POS:BUP,THC NEG:FEN Subjective Patient ID: Amara Mcgraw is a 43 y.o. female who presents for OBAT. Amara is being seen for OBAT services. She is maintaining abstinence with no cravings or med side effects. She will be traveling to [facility] to visit her daughter for two weeks. Leaving on May 19 and returning on June 02. Knows she won't be able to smoke pot when she's there, so she's bracing herself for that. Stressed. No acute concerns today. Review of Systems Psychiatric/Behavioral: Negative for dysphoric mood. The patient is nervous/anxious. Objective Physical Exam Constitutional: Appearance: Normal appearance. Skin: General: Skin is warm and dry. Neurological: Mental Status: She is alert and oriented to person, place, and time. Assessment/Plan Diagnoses and all orders for this visit: Uncomplicated opioid dependence (CMS/HCC) Counseling provided RE: importance of multiple sources of support for achieving and maintaining recovery. Counseling RE: harm reduction measures, ie, not using alone, the use of clean needles/equipment, Narcan. Discussed strategies to use when confronted with situations that trigger use. Continue current Suboxone dose. Continue eight week visits. - POCT NICHOLAS-14 Urine Drug Screen This information has been disclosed to you from records protected by federal confidentiality rules (42 CFR Part 2). The federal rules prohibit you from making any further disclosure of information inthis record that identifies a patient as having or having had a substance use disorder either directly, by reference to publicly available information, or through verification of such identification by another person unless further disclosure is expressly permitted by the written consent of the individual whose information is being disclosed or as otherwise permitted by (see2.3.1). The federal rules restrict any use of the information to investigate or prosecute with regard to a crime any patient with a substance use disorder, except as provided at 2.12??(5) and 2.65. documented in this encounter Plan of Treatment Upcoming Encounters Date Type Department Care Team (Late st Contact Info) Description 06/12/2024 3:45 PM EDT Office Visit [facility] [address] [place] [address] Lauren Jason MD [address] [place] [address] documented as of this encounter Procedures Procedure Name Priority Date/Time Associated Diagnosis Comments POCT NICHOLAS-14 URINE DRUG SCREEN Routine 04/24/2024 3:45 PM EST Uncomplicated opioid dependence (CMS/HCC) documented in this encounter Results * POCT NICHOLAS-14 Urine Drug Screen (04/24/2024 [...] CARE TEST ENTER/VIVIANA T ORDERABLES Final Result documented in this encounter Visit Diagnoses Diagnosis Uncomplicated opioid dependence (CMS/HCC)- Primary documented in this encounter Care Teams Radiation Technician Relationship Specialty Start Date End Date Patience Wolf MD [address] [place] [phone] PCP - General Family Medicine 02/19/18 Dr. Santiago Psychiatry 03/05/24 documented as of this encounter
[2024-04-28 14:06] LABS: Alanine Aminotransferase 19 U/L (0-31); Albumin Level 4.1 g/dL (3.5-5.0); Alkaline Phosphatase 54 U/L (39-117); Anion Gap 11 (12-20); Aspartate Amino Transferase 22 U/L (5-31); Bilirubin Direct 0.1 mg/dL (0.0-0.5); Bilirubin Total 0.3 mg/dL (0.0-1.0); Blood Urea Nitrogen 16 mg/dL (9-16); Calcium 9.3 mg/dL (8.4-10.2); Carbon Dioxide 25 mmol/L (22-29); Chloride 109 mmol/L (96-108); Cholesterol 206 mg/dL (<200); Estimated Glomerular Filt Rate > 60; Glucose Random 107 mg/dL (60-115); HDL Cholesterol 39 mg/dL (>40); LDL Cholesterol Calculated 113 mg/dL (<100); Potassium 4.7 mmol/L (3.3-5.1); Sodium 140 mmol/L (135-145); TSH reflex Free T4 3.33 uIU/mL (0.32-4.0); Total Protein 7.4 g/dL (6.5-8.0); Triglycerides 271 mg/dL (<150); Vitamin D 25-OH Total 43.3 ng/mL (>30)
[2024-04-28 16:31] LABS: CT PCR NOT DETECTED (Not Detect.); NG PCR NOT DETECTED (Not Detect.)
[2024-04-29 08:17] LABS: HIV AB/AG Nonreactive (Nonreactive); HIV Num 1 0.07 S/CO (0.00-0.99); ~HepC Num1 0.09 S/CO (0.00-0.79); ~Hepatitis C Antibody Nonreactive (Nonreactive)
== END 2024-04-28 12:08 | disposition home or self-care (01) ==
LOC: HO.HHCL 12:07
PROVIDERS: Visit Provider Family Medicine
DX: N92.0 Excessive and frequent menstruation with regular cycle (principal); E78.5 Hyperlipidemia, unspecified; E55.9 Vitamin D deficiency, unspecified
CPT/HCPCS: 80048; 80061; 80076; 82306; 84443; 85025; 86803; 87389; 87491; 87591